=== PATIENT | female | born 1995 | race Caucasian/White ===

== ENCOUNTER → 2020-12-24 10:25 | Outpatient (CLI) | payer OTHER, MEDICAID, SELFPAY ==
[2020-12-24 12:18] LABS: Absolute Lymphocyte Count 1.39 X10^3/uL (0.83-4.51); Absolute Neutrophil Count 2.8 X10^3/uL (2.0-7.7); Basophil# 0.02 X10^3/uL; Basophil% 0.4 % (0-1); Eosinophil# 0.06 X10^3/uL; Eosinophils% 1.3 % (0-5); Hematocrit 38.1 % (37-47); Hemoglobin 12.9 g/dL (12.0-15.0); Lymphocyte # 1.39 X10^3/ul (0.83-4.51); Lymphocyte % 29.7 % (19-41); Mean Corp Hgb Conc 33.9 g/dL (32-36); Mean Corpuscular Hgb 29.6 pg (27.0-32.0); Mean Corpuscular Volume 87.4 fL (81-99); Mean Platelet Vol. 9.1 fl (6.2-12.0); Monocyte# 0.41 X10^3/uL; Monocyte% 8.8 % (0-10); NRBC Flagged by Analyzer 0 % (0-5); Neutrophil # 2.78 X10^3/uL (2.7-7.7); Neutrophil % 59.4 % (47-70); Platelet Count 302 K/mm3 (150-450); RBC Distribution Width CV 11.8 % (11.6-14.6); RBC Distribution Width SD 37.9 fl (35.1-43.9); Red Blood Count 4.36 M/mm3 (4.2-5.4); White Blood Count 4.7 K/mm3 (4.4-11.0)
[2020-12-24 12:56] LABS: Amphetamine Urine VISTA NEGATIVE (<1000 ng/mL); Barbiturate Urine VISTA NEGATIVE (< 200 ng/mL); Benzodiazepine Urine VISTA NEGATIVE (< 200 ng/mL); Cocaine Urine VISTA NEGATIVE (< 300 ng/mL); Ecstacy Urine VISTA NEGATIVE (< 500 ng/mL); Methadone Urine VISTA NEGATIVE (< 300 ng/mL); PCP Urine VISTA NEGATIVE (< 25 ng/mL); THC Urine VISTA NEGATIVE (< 50 ng/mL); Vista UDS pH Range 7
[2020-12-24 13:08] LABS: HIV - WCH Non-Reactive (Nonreactive); Hepatitis B Surface Antigen Non-Reactive (Nonreactive); Hepatitis C Antibody Non-Reactive (Nonreactive); Rubella IgG Reactive (Nonreactive); Syphilis Antibodies Non-reactive
== END ==
PROVIDERS: Visit Provider Obstetrics & Gynecology
DX: Z34.81 Encounter for supervision of other normal pregnancy, first trimester (principal)
CPT/HCPCS: 80307; 85025; 86703; 86762; 86780; 86803; 87086; 87340

== ENCOUNTER 2021-01-05 08:14 | Day surgery (SDC) | payer OTHER, MEDICAID, SELFPAY ==
--- NOTE | 2021-01-04 21:25 | HP.PCM_ITS ---
History and Physical Date of Admission: 01/05/21 Surgical History and Physical Ruth Adan, a 25 year old female 0 0 0 0 0, presents for Suction D and E on at . -- Inevitable Miscarriage -- U/S showed 9 week IUP without FHTs at 10 weeks gestation. Cystic hygroma noted on baby. MEDICATIONS HISTORY: Current medications prescribed by our practice are: 1. terconazole 0.4 % vaginal cream, insert 1 applicatorful nightly for 7 days ALLERGIES: Amoxicillin, Hives and/or rash, Sulfa (Sulfonamide Antibiotics) and Hives and/or rash Infections - Varicella Vaccine Illnesses - constipation and yeast infections. Accidents - no injuries of consequence Hospitalizations - None Review of Systems: SOCIAL HISTORY: Alcohol Use - denies drinking Smoking - Never Diet - balanced Diet, occ coffee and Water tries for 60-80 oz Lifestyle - moderate stress lifestyle Exercise - active work and Walks 1-2 x week. Seat Belt Use - always Employer - [employer] in [place] Job Description - GOVERNMENT CONTRACTS MANAGER/ student Illicit Drug Use - denies use of street drugs Sexual Activity - current partner Residence - Lives w/FOB Place of - [place] Hours Worked - 30 Spouse-Sig Other Name - Manav Welsh (SHELLY) Spouse-Sig Other Occupation - BSN -- [employer] Spouse-Sig Other Phone No - [phone] Children Name(s) - SHELLY has 10 yo son and 7 yo daughter. Control - FAMILY HISTORY: MENSTRUAL HISTORY: LMP Known?- DefiniteAmount/Duration - 3-4 DAYS, Regularity - Regular, LMP - 10/22/20, Age Onset Menarche - 12 PAST PREGNANCIES: Total Pregnancies - 1; Full Term Pregnancies - 0; Premature - 0; Abortions, Induced - 0; Abortions, Spontaneous - 0; Ectopics - 0; Multiple Births - 0; Living Children - 0 SURGICAL HISTORY: 1. [place] Teet Extraction, age 18 PHYSICAL EXAM BP- 128/64 Sitting, Right arm, regular cuff Weight- 156.54882 lbs Height- 57.5 inch BMI:33.29 CONSTITUTIONAL - NAD, well nourished, and well developed SKIN - No rash, lesions, or ulcers HEENT - Normocephalic, PERRLA, EOMI NECK - No nodes, no nuchal rigidity and thyroid normal size and texture LYMPH NODES - Palpation of lymph nodes in neck and groins within normal limits LUNGS - CTA x2 without wheezes, crackles or rales CARDIAC - Regular rate and rhythm without rubs, murmurs, or gallops ABDOMEN - Without hepatosplenomegaly, distention, masses, rebound, or guarding; normal bowel sounds; no hernias EXTREMITIES - No edema or calf tenderness NEUROLOGICAL - Cranial nerves II-XII grossly intact PSYCHIATRIC - A and O to time, place, person, mood and affect External Genitial Vagina - non-tender without lesions Urethra/Urethral Meatus - non-tender Bladder - non-tender Vagina - vaginal borges are pink and moist without loss of rugae and no evidence of atropy Cervix - without cervical motion tenderness and has normal size and features without evident lesions Uterus - 8 cm uterus Adnexa - clear without massess or tenderness ASSESSMENT/PLAN: Inevitable Miscarriage Discussed options for treatment including expectant management versus proceeding with Suction D and E. Discussed RBAs and all questions answered.
--- NOTE | 2021-01-05 | POC_PTH ---
PATIENT: JASMINA PETTY [place] [facility] [place][id number] AGE/SX: 25/ ROOM: RE01/05/[address]: Dr. German Lew MD : 1995 BED: DIS: 01/05/2021 SPEC #: [id number] RECD: 01/05/21 13:03 STATUS: BILLIE FIONA #: [id number] PENG: 01/05/21 00:[address]: German Lew DEPT: SURGICAL PATHOLOGY RECD BY: Michael Sanders ENTERED: 01/05/21 13:03 SP TYPE: PROD CONC OTHR DR: Dr. Mylene Phipps MD Tissues: Product of conception, NOS Procedures: Surgery Specimen Level IV HEADER OPERATION: Suction dilation and curettage PRE-OP DIAGNOSIS: Inevitable miscarriage TISSUE SUBMITTED: Products of conception MICROSCOPIC DIAGNOSIS Products of conception: Immature chorionic villi, decidua and gestational endometrium (products of conception). SJ:joseluis 01/06/2021 MICROSCOPIC DESCRIPTION Slides are reviewed. GROSS DESCRIPTION Received in fixative is one container labeled with the patient's name and designated products of conception. The specimen consists of multiple irregular fragments of red-us soft tissue that in aggregate measure 9 x 4 x 1 cm. parts are not grossly recognized. Special Officer portions are submitted in one cassette. / AM:joseluis 01/05/21 TC:5 CPT: 06223
[2021-01-05 08:59] VITALS: BP 112/72; PULSE 101; RESP 16; TEMP 36.6; O2SAT 100; BMI 32.5
[2021-01-05] MEDS: Lactated Ringers 1,000 ML 100 ML IV (09:04)
--- NOTE | 2021-01-05 10:31 | SUR.PREOP ---
1015 pt and family updated on surgery delay. denies needs at this time
--- NOTE | 2021-01-05 11:17 | PCM.OPRPT ---
Report of Operation Date of Procedure: 01/05/21 Pre-Operative Diagnosis: Inevitable Miscarriage Post-Operative Diagnosis: Inevitable miscarriage Surgery/Procedure Performed:: Suction Dilation and Evacuation Description of Surgical Findings:: 10 cm endometrial cavity with products of conception present. Surgeon: German Lew Type of Anesthesia: MAC Anesthesiologist: Bree Hammer Estimated Blood Loss (mL): Minimal Fluids Replaced: Crystalloid Description of Procedure: Indication: 25 year patient with incomplete AB at 10 weeks gestation with a 9 week IUP without FHTs. Pt has been counseled regarding the risks, benefits, and alternatives of this procedure and all questions were answered. Procedure: Patient was taken to the operating room where she was given IV sedation. The patient was prepped and draped in the usual sterile fashion. The anterior cervix was grasped with a tenaculum and cervix was dilated. An 9 mm suction curette was inserted into the cervix and all contents removed. Uterus was gently curetted and remaining tissue was removed by reinserting the suction curette. The patient tolerated the procedure well and was taken to the recovery room in satisfactory condition. Sponge, instruments and needle counts were all correct. There were no apparent complications of the surgery. Grafts/Implants Used: None Complications None Admit VTE Documentation VTE Present on Admission: Yes VTE Mechan Device Prophylaxis: SCD's
--- NOTE | 2021-01-05 11:19 | PCM.DC ---
Discharge Instructions Diet Discharge Diet: No restrictions Activity Discharge Activity: Return to Normal Activity, May Shower and May Take a Tub Bath May resume sexual activity in: 1-2 weeks Additional Activity Instructions:: Use ibuprofen and Tylenol as needed for crampiness. Dressing / Incision Call your doctor if your incision/area has: Increased Pain/ Swelling Call your doctor if you observe: Fever of 101 or Higher, Inability to urinate, Inability to have a bowel movement and Using more than 1 pad per hour Follow Up Care Please Follow Up With: German Lew MD When: 2 to 3 weeks Test Results: Test results from this visit will be discussed in further detail at your follow-up appointment, if applicable. Discharge Plan Admission Primary Reason for Your Visit: Dilation and Evacuation of Nonviable Attending Provider: German Lew Primary Care Provider: Mylene Phipps Discharge Orders/Prescriptions Prescriptions: No Action NK RF: 0 Referrals / Follow Up: Mylene Phipps MD [Primary Care Provider] - Disposition Disposition (needs filled in before D/C Order can be placed): Home, self care
[2021-01-05 11:22] VITALS: BP 102/58; BP 112/72; PULSE 83; RESP 20; TEMP 37.2; O2SAT 98
[2021-01-05 11:24] VITALS: BP 102/58; BP 112/72; PULSE 94; RESP 16; O2SAT 99
[2021-01-05 11:30] VITALS: BP 103/73; BP 112/72; PULSE 90; RESP 16; O2SAT 98
[2021-01-05 11:35] VITALS: BP 112/72; BP 95/65; PULSE 88; RESP 16; TEMP 36.5; O2SAT 98
[2021-01-05 12:11] VITALS: BP 112/72
== END 2021-01-05 12:17 | disposition home or self-care (01) ==
LOC: SDC 08:16 → AC 08:18
PROVIDERS: PCP Internal Medicine; Referring Provider Obstetrics & Gynecology; Visit Provider Obstetrics & Gynecology
PROC: (CPT 59812; principal; 2021-01-05 09:45)
DX: O03.4 Incomplete spontaneous abortion without complication (principal); Z88.0 Allergy status to penicillin; Z88.2 Allergy status to sulfonamides
CPT/HCPCS: 59812; 88305; J7120; J2405

== ENCOUNTER 2021-01-11 20:36 | Emergency (ER) | payer OTHER, MEDICAID, SELFPAY ==
[2021-01-11 20:37] VITALS: BP 141/78; PULSE 122; RESP 24; TEMP 36.4; O2SAT 99; BMI 31.5
--- NOTE | 2021-01-11 20:49 | ED.VIS.FEGU ---
HPI <Dr. Triston Sweeney DO - Last Filed: 01/11/21 22:02> HPI - Female History of Present Illness Chief Complaint: Vag Bleeding Informant: patient Narrative Narrative: 25-year-old female presents with heavy vaginal bleeding. Patient states that she is postoperative day 6 from a D&C due to demise at [address] Lew was her surgeon. She states that she was having light bleeding till when she had some heavier bleeding but that resolved. Yesterday she had some heavier bleeding and spoke with the nurse who recommended she discontinue to observe. She has been experiencing some lower abdominal cramping today and tonight the bleeding became heavier and she was passing golf ball size clots. No syncope but has felt lightheaded intermittently PFSH <Dr. Triston Sweeney DO - Last Filed: 01/11/21 22:02> PFSH Medical History (Updated 01/11/21 @ 21:[address] Triston Sweeney DO) Non-smoker Wears contact lenses Wears glasses Home Medications [id number] [] 1 tab PO DAILY 01/11/21 [History Last Taken Unknown] Allergy/AdvReac Type Severity Reaction Status Date / Time amoxicillin Allergy Hives Verified 01/11/21 20:40 Sulfa (Sulfonamide Allergy Hives Verified 01/11/21 20:40 Antibiotics) Surgical History (Updated 01/11/21 @ 20:[address] Triston Sweeney DO) History of D&C History of wisdom tooth extraction Social History (Updated 01/11/21 @ 20:[address] Triston Sweeney DO) Smoking Status: Never smoker substance use type: does not use ROS <Dr. Triston Sweeney DO - Last Filed: 01/11/21 22:02> ROS ED Constitutional Constitutional ED: Denies chills or weight loss Eyes Eyes: Denies change in vision or diplopia ENT ENT ED: Denies ear pain, rhinorrhea or sore throat Cardiovascular Cardiovascular: Denies chest pain, orthopnea, palpitations or racing heartbeat Respiratory/Chest Respiratory/Chest: Denies cough, dyspnea or orthopnea Gastrointestinal Gastrointestinal: Denies abdominal pain, diarrhea, nausea or vomiting Genitourinary Genitourinary ED: Reports other Details: Vaginal bleeding ; Denies dysuria, hematuria or urinary frequency Musculoskeletal Musculoskeletal: Denies arthralgias or myalgias Integumentary Denies abscess or rash Neurologic Neurologic: Denies headache(s) or weakness Psychiatric Psychiatric: Denies anxiety, depression, suicidal ideation or suicidal thoughts Endocrine Endocrinology: Denies polydipsia, polyphagia or polyuria Allergic/Immunologic Allergic/Immunologic ED: Denies mouth swelling, tongue swelling or urticaria EXAM <Dr. Triston Sweeney DO - Last Filed: 01/11/21 22:02> Physical Exam Const Vital Signs: 01/11/21 20:37 01/12/21 00:01 Temperature 97.5 F L 98.4 F Temperature Source Temporal Oral Pulse Rate 122 H 118 H Respiratory Rate 24 H 18 Blood Pressure 141/78 H 111/99 H Blood Pressure Mean 99 103 Pulse Ox 99 100 Oxygen Delivery Method Room Air Room Air Positive well nourished and well developed General Appearance ED: well developed HEENT Reports normocephalic, head/scalp atraumatic and moist mucous membranes Eyes PERRL and EOMs intact bilaterally Neck no lymphadenopathy, supple and no JVD Resp normal respiratory effort and clear to auscultation bilaterally Cardio regular rate and no murmurs Rate: other Other Details: Tachycardia GI normal to inspection, nondistended, normoactive bowel sounds and non-tender Palpation: soft Narrative: exam revealed dark red bleeding with large clots. Mild uterine tenderness. No adnexal tenderness. Back/Spine no CVA tenderness and normal ROM Extremity normal to inspection General Extremety ED: Negative for edema General Extremity: Negative for edema Neuro oriented x3 and CN's II-XII intact bilaterally Sensorium / Orientation: alert Motor Exam: strength 5/5 throughout Psych mental status grossly normal Mood & Affect: Negative for depressed or tearful Skin no rashes or lesions noted and no wounds <Dr. Ish Hernandez MD - Last Filed: 01/12/21 00:36> Physical Exam Const Vital Signs: 01/11/21 20:37 01/12/21 00:01 Temperature 97.5 F L 98.4 F Temperature Source Temporal Oral Pulse Rate 122 H 118 H Respiratory Rate 24 H 18 Blood Pressure 141/78 H 111/99 H Blood Pressure Mean 99 103 Pulse Ox 99 100 Oxygen Delivery Method Room Air Room Air MDM <Dr. Triston Sweeney DO - Last Filed: 01/11/21 22:02> [facility] MDM Narrative Medical decision making narrative: Patient's hemoglobin is stable at 13.4. White count 6.3. Normal platelets. Quantitative hCG is 386. I spoke with Dr. Ham Montero. We will administer Cytotec 800 mcg and obtain formal ultrasound. Care the patient will be transferred to the night physician Dr. Ish Hernandez. Lab Data Attestation: I reviewed the patient's lab results. Labs: Laboratory Results - last 24 hr 01/11/21 01/11/21 01/11/21 20:55 20:55 20:55 WBC 6.3 RBC 4.52 Hgb 13.4 Hct 40.1 MCV 88.7 MCH 29.6 MCHC 33.4 RDW Std Deviation 38.3 RDW Coeff of Edilma 11.9 Plt Count 360 MPV 8.9 Immature Gran % (Auto) 0.300 Neut % (Auto) 54.9 Lymph % (Auto) 36.8 Fountain % (Auto) 6.0 Eos % (Auto) 1.4 Baso % (Auto) 0.6 Absolute Neuts (auto) 3.5 Absolute Lymphs (auto) 2.33 Nucleated RBC % 0 HCG, Quant 386 H Urine Color Urine Clarity Urine pH Ur Specific [place] Urine Protein Urine Glucose (UA) Urine Ketones Urine Occult Blood Urine Nitrite Urine Bilirubin Urine Urobilinogen Ur Leukocyte Esterase Urine RBC Urine WBC Ur Squamous Epith Cells Urine Bacteria Urine Mucus Blood Type A POSITIVE 01/11/21 22:05 WBC RBC Hgb Hct MCV MCH MCHC RDW Std Deviation RDW Coeff of Edilma Plt Count MPV Immature Gran % (Auto) Neut % (Auto) Lymph % (Auto) [place] % (Auto) Eos % (Auto) Baso % (Auto) Absolute Neuts (auto) Absolute Lymphs (auto) Nucleated RBC % HCG, Quant Urine Color Brown Urine Clarity Turbid Urine pH 6.5 Ur Specific [place] 1.025 Urine Protein 100 H Urine Glucose (UA) Normal Urine Ketones 5 H Urine Occult Blood 250 H Urine Nitrite Negative Urine Bilirubin Negative Urine Urobilinogen Normal Ur Leukocyte Esterase 25 H Urine RBC > 100 SEEN Urine WBC 0-5 SEEN Ur Squamous Epith Cells 0-5 SEEN Urine Bacteria 2+ Urine Mucus 0 SEEN Blood Type Radiography Diagnostic Testing: Radiology Impression Transvaginal US 01/11/21 21:57 IMPRESSION: Cystic heterogeneous masslike structure within the lower uterine segment at the level of the endometrial canal which could represent retained products of conception given clinical presentation. Differential diagnosis includes blood clots, infectious process or mass. Clinical correlation recommended along with serial hCG measurements. Follow-up ultrasound along with [facility] [employer] consultation recommended. Electronically Signed: Jennifer Montiel MD at 0:26 EDT , Service support , <Dr. Ish Hernandez MD - Last Filed: 01/12/21 00:36> [facility] MDM Narrative Medical decision making narrative: Patient was signed out to me pending results of ultrasound. Ultrasound does show a 1.5 x 2.2 x 1.1 cm cystic area. I did discuss results with Dr. Benavides. The patient had already been treated with Cytotec. She is going to follow-up with her in the office tomorrow. I do feel that this is reasonable. Her bleeding has significantly slowed. The patient will be discharged. Impression Vaginal bleeding Lab Data Attestation: I reviewed the patient's lab results. Labs: Laboratory Results - last 24 hr 01/11/21 01/11/21 01/11/21 20:55 20:55 20:55 WBC 6.3 RBC 4.52 Hgb 13.4 Hct 40.1 MCV 88.7 MCH 29.6 MCHC 33.4 RDW Std Deviation 38.3 RDW Coeff of Edilma 11.9 Plt Count 360 MPV 8.9 Immature Gran % (Auto) 0.300 Neut % (Auto) 54.9 Lymph % (Auto) 36.8 Fountain % (Auto) 6.0 Eos % (Auto) 1.4 Baso % (Auto) 0.6 Absolute Neuts (auto) 3.5 Absolute Lymphs (auto) 2.33 Nucleated RBC % 0 HCG, Quant 386 H Urine Color Urine Clarity Urine pH Ur Specific [place] Urine Protein Urine Glucose (UA) Urine Ketones Urine Occult Blood Urine Nitrite Urine Bilirubin Urine Urobilinogen Ur Leukocyte Esterase Urine RBC Urine WBC Ur Squamous Epith Cells Urine Bacteria Urine Mucus Blood Type A POSITIVE 01/11/21 22:05 WBC RBC Hgb Hct MCV MCH MCHC RDW Std Deviation RDW Coeff of Edilma Plt Count MPV Immature Gran % (Auto) Neut % (Auto) Lymph % (Auto) [place] % (Auto) Eos % (Auto) Baso % (Auto) Absolute Neuts (auto) Absolute Lymphs (auto) Nucleated RBC % HCG, Quant Urine Color Brown Urine Clarity Turbid Urine pH 6.5 Ur Specific [place] 1.025 Urine Protein 100 H Urine Glucose (UA) Normal Urine Ketones 5 H Urine Occult Blood 250 H Urine Nitrite Negative Urine Bilirubin Negative Urine Urobilinogen Normal Ur Leukocyte Esterase 25 H Urine RBC > 100 SEEN Urine WBC 0-5 SEEN Ur Squamous Epith Cells 0-5 SEEN Urine Bacteria 2+ Urine Mucus 0 SEEN Blood Type Radiography Diagnostic Testing: Radiology Impression Transvaginal US 01/11/21 21:57 IMPRESSION: Cystic heterogeneous masslike structure within the lower uterine segment at the level of the endometrial canal which could represent retained products of conception given clinical presentation. Differential diagnosis includes blood clots, infectious process or mass. Clinical correlation recommended along with serial hCG measurements. Follow-up ultrasound along with [facility] [facility] consultation recommended. Electronically Signed: Jennifer Montiel MD at 0:26 EDT , Service support , Discharge Plan Triage Chief Complaint: Vag Bleeding ED Provider: Triston wSeeney Dx/Rx/DC Orders Clinical Impression: Vaginal bleeding Instructions: ED Dysfunctional Uterine Bleeding Prescriptions: No Action 1 mg Tablet 1 tab PO DAILY RF: 0 Primary Care Provider: Mylene Phipps Referrals: Mylene Phipps MD [Primary Care Provider] - Maryam Delarosa MD [STAFF PHYSICIAN] - As soon as possible (Call the office in the morning)
[2021-01-11 21:28] LABS: Absolute Lymphocyte Count 2.33 X10^3/uL (0.83-4.51); Absolute Neutrophil Count 3.5 X10^3/uL (2.0-7.7); Basophil# 0.04 X10^3/uL; Basophil% 0.6 % (0-1); Eosinophil# 0.09 X10^3/uL; Eosinophils% 1.4 % (0-5); Hematocrit 40.1 % (37-47); Hemoglobin 13.4 g/dL (12.0-15.0); Lymphocyte # 2.33 X10^3/ul (0.83-4.51); Lymphocyte % 36.8 % (19-41); Mean Corp Hgb Conc 33.4 g/dL (32-36); Mean Corpuscular Hgb 29.6 pg (27.0-32.0); Mean Corpuscular Volume 88.7 fL (81-99); Mean Platelet Vol. 8.9 fl (6.2-12.0); Monocyte# 0.38 X10^3/uL; NRBC Flagged by Analyzer 0 % (0-5); Neutrophil # 3.47 X10^3/uL (2.7-7.7); Neutrophil % 54.9 % (47-70); Platelet Count 360 K/mm3 (150-450); RBC Distribution Width CV 11.9 % (11.6-14.6); RBC Distribution Width SD 38.3 fl (35.1-43.9); Red Blood Count 4.52 M/mm3 (4.2-5.4); White Blood Count 6.3 K/mm3 (4.4-11.0)
[2021-01-11 21:48] LABS: hCG Titer Quant., Serum 386 mIU/mL (1-3)
--- NOTE | 2021-01-11 21:57 | US_ITS ---
STUDY: ULTRASOUND OF THE FEMALE PELVIS - COMPLETE REASON FOR EXAM: Female, 25 years old. Possible retained products of conception -- Status post D C day 6 LMP: 10/22/2020. TECHNIQUE: Transabdominal and Transvaginal TECHNICAL QUALITY: Adequate. COMPARISON: None. FINDINGS: The uterus is anteverted and is in a midline position. The uterus measures 7.3 x 4.3 x 4.0 cm. Normal uterine cervix. The endometrium measures 5.0 mm in thickness, and is hyperechoic. There is no demonstrated endometrial mass. There is fluid within the endometrium. There is a heterogeneous structure with cystic changes within the lower endometrial canal measuring 1.5 x 2.2 x 1.1 cm which could represent retained products of conception in the clinical context. There is no demonstrated myometrial mass. I.U.D. - The patient does not have an I.U.D. The right ovary is visualized. The right ovary measures 1.3 x 1.9 x 1.9 cm. There is no right ovarian cyst or ovarian mass. There is no visualized right adnexal mass or complex lesion. There is normal arterial and normal venous vascularity. The left ovary is visualized. The left ovary measures 2.4 x 1.9 x 2.0 cm. There is no left ovarian cyst or ovarian mass. There is no visualized left adnexal mass or complex lesion. There is normal arterial and normal venous vascularity. There is no fluid in the cul-de-sac. The volume of the bladder was 79 ml. US/Transvaginal Non- IMPRESSION: Cystic heterogeneous masslike structure within the lower uterine segment at the level of the endometrial canal which could represent retained products of conception given clinical presentation. Differential diagnosis includes blood clots, infectious process or mass. Clinical correlation recommended along with serial hCG measurements. Follow-up ultrasound along with [facility] consultation recommended. Electronically Signed: Jennifer Montiel MD at 0:26 EDT , Service support ,
[2021-01-11 22:10] LABS: Mucous, Urine 0 SEEN /hpf (<or=2+)
[2021-01-11 22:36] LABS: Color, Urine Brown (Yellow); Glucose, Dipstick Normal (Normal); Ketone-Dipstick 5 mg/dl (Negative); Leukocyte Esterase-Dipstick 25 /ul (Negative); Nitrite-Dipstick Negative (Negative); Occult Blood-Urine 250 /ul (Negative); Protein-Dipstick 100 mg/dl (Negative); Specific Gravity, Urine 1.025 (1.002-1.030); Urine Bilirubin Dipstick Negative (Negative); Urine Clarity Turbid (Clear); Urine Urobilinogen Normal (Normal); Urine pH 6.5 (5.0 - 8.0)
[2021-01-11 22:50] LABS: Red Blood Cells-Urine > 100 SEEN /hpf (0-5); White Blood Cells 0-5 SEEN /hpf (0-5)
[2021-01-11] MEDS: miSOPROStol 200 MCG Tablet 800 MCG PO (22:50)
[2021-01-11 22:51] LABS: Bacteria 2+ /hpf (None Seen); Squamous Epithelial Cells - UA 0-5 SEEN /hpf (5-10)
[2021-01-12 00:01] VITALS: BP 111/99; PULSE 118; RESP 18; TEMP 36.9; O2SAT 100
--- NOTE | 2021-01-12 00:02 | ED.RN ---
PHYSICIAN NOTIFIED THAT PATIENT IS SHIVERING UNCONTROLLABLY SINCE TAKING CYTOTEC. FULL SET OF VITALS OBTAINED AND GIVEN TO MD. VERBALIZES UNDERSTANDING
[2021-01-12 00:51] VITALS: BP 113/56; PULSE 90; RESP 18
== END 2021-01-12 00:51 | disposition home or self-care (01) ==
LOC: ED 21:14
PROVIDERS: Emergency Provider Emergency Medicine; PCP Internal Medicine
DX: O03.6 Delayed or excessive hemorrhage following complete or unspecified spontaneous abortion (principal); Y83.8 Other surgical procedures as the cause of abnormal reaction of the patient, or of later complication, without mention of misadventure at the time of the procedure
CPT/HCPCS: 76830; 81001; 84702; 85025; 86900; 86901; 99284; A4216

== ENCOUNTER → 2021-02-09 13:57 | Outpatient (CLI) | payer OTHER, MEDICAID, SELFPAY ==
[2021-01-11 20:37] VITALS: BMI 31.5
[2021-02-09 14:51] LABS: hCG Titer Quant., Serum 7 mIU/mL (1-3)
== END ==
PROVIDERS: PCP Internal Medicine; Visit Provider Obstetrics & Gynecology
DX: N91.2 Amenorrhea, unspecified (principal)
CPT/HCPCS: 36415; 84702

== ENCOUNTER → 2021-02-11 12:20 | Outpatient (CLI) | payer OTHER, MEDICAID, SELFPAY ==
[2021-02-11 15:11] LABS: hCG Titer Quant., Serum 6 mIU/mL (1-3)
== END ==
PROVIDERS: PCP Internal Medicine; Visit Provider Obstetrics & Gynecology
DX: N91.2 Amenorrhea, unspecified (principal)
CPT/HCPCS: 36415; 84702